=== PATIENT | male | born 1995 | race Caucasian/White ===

== ENCOUNTER 2024-04-02 22:25 | Inpatient (IN) ==
[2024-04-02] MEDS ORDERED: Haloperidol 5 mg/ml SDV IV/IM 5 MG/ML AMP ONE (22:35)
[2024-04-02] MEDS ORDERED: LORazepam 2 mg VIAL 1 ml ONE ×2 (22:35→22:37)
[2024-04-02] MEDS: Haloperidol 5 mg/ml SDV IV/IM 5 MG/ML AMP IM ONE (22:55)
[2024-04-02] MEDS: LORazepam 2 mg VIAL 1 ml IM ONE (22:55)
[2024-04-02] MEDS ORDERED: Lorazepam PYXIS KEY PRN (23:23)
[2024-04-03 01:01] LABS: ABS Basophils 0.1 10^3/uL (0.0-0.1); ABS Eosinophils 0.2 10^3/uL (0.0-0.5); ABS Lymphocytes 1.7 10^3/uL (1.0-4.8); ABS Monocytes 1.1 10^3/uL (0.0-1.1); ABS Neutrophils 6.2 10^3/uL (1.5-7.6); ABS Nucleated RBC 0.02 10^3/ul; Eosinophil % 2.5 %; Hematocrit 36.6 % (38-53); Hemoglobin 12.7 g/dL (13.2-16.3); Lymphocyte % 18.6 %; Mean Corpuscular Hemoglobin 29.6 pg (27-33); Mean Corpuscular Hgb Conc 34.6 g/dL (31-36); Mean Corpuscular Volume 85.5 fL (80-97); Mean Platelet Volume 6.2 fL (7.5-11.2); Nucleated Red Blood Cells % 0.2 %/100WBC (0.0-0.8); Platelet Count 315 10^3/uL (150-450); Red Blood Count 4.28 10^6/uL (4.06-5.63); Red Cell Distribution Width 14.6 % (12-17); White Blood Count 9.3 10^3/uL (3.6-10.2)
[2024-04-03 01:33] LABS: ALT 47 U/L (7-52); AST 116 U/L (13-39); Acetaminophen < 15 mcg/mL; Albumin 4.3 g/dL (3.5-5.7); Albumin/Globulin Ratio 2.2 (1-3); Alcohol, S < 13 mg/dL (<13); Alkaline Phosphatase 45 U/L (35-149); Anion Gap 8 mmol/L (2-16); Blood Urea Nitrogen 15 mg/dL (6-24); CO2 Carbon Dioxide 28 mmol/L (22-32); Calcium 9.2 mg/dL (8.6-10.3); Chloride 97 mmol/L (101-111); Creatinine, Serum 0.91 mg/dL (0.67-1.17); Glucose 104 mg/dL (70-100); Salicylate < 2.50 mg/dL (<30); Sodium 133 mmol/L (135-145); Total Bilirubin 0.6 mg/dL (0.2-1.0); Total Protein 6.3 g/dL (6.4-8.9); eGFR CKD-EPI 116.3 (>60)
[2024-04-03 05:49] LABS: Urine Appearance Clear; Urine Bilirubin Negative (Negative); Urine Blood Negative (Negative); Urine Color Light-Yellow; Urine Glucose Negative (Negative); Urine Ketones 1+ (Negative); Urine Nitrite Negative (Negative); Urine Protein Negative (Negative); Urine Urobilinogen Negative (Negative); Urine pH 5.5 (5.0-8.0)
[2024-04-03 06:02] LABS: Urine Benzodiazepine Screen None Detected (None Detect); Urine Cannabinoids Screen None Detected (None Detect); Urine Opiates Screen None Detected (None Detect)
[2024-04-03] MEDS: Nicotine GUM 4MG FRUIT FLAVOR PO PRN (10:22)
[2024-04-03] MEDS ORDERED: Al Hydrox/Mg Hydrox/Simet LIQ 30 ML UDC PO PRN (16:24)
[2024-04-03] MEDS: Paliperidone SUSTENNA 234 MG/1.5 ML IM ONE (17:11)
[2024-04-04] MEDS: Vitamin THERAPEUTIC TAB PO SCH (07:48)
[2024-04-04] MEDS ORDERED: Influenza Vaccine *TRI* 2024-25* 0.5 ML SYRINGE IM ONE (10:00)
[2024-04-04] MEDS ORDERED: COVID VAC 24-25 (12+) (Moderna) Syringe 0.5 mL IM ONE (10:00)
[2024-04-04] MEDS: Nicotine PATCH 21 MG/24 HR PATCH TRANSDERM SCH (14:28)
[2024-04-04] MEDS: Finasteride(ALOPECIA) 1 mg(NF) PO SCH (14:31)
[2024-04-04] MEDS: Nicotine Lozenge mini 4 MG LOZNG.MINI MT PRN (19:18)
[2024-04-05 08:56] LABS: HDL Cholesterol 46.9 mg/dL
[2024-04-07] MEDS: Paliperidone SUSTENNA 156 MG/1 ML IM ONE (09:39)
[2024-04-11] MEDS: Dextran 70/Hypromellose Tears Eye Drops 15 ml BTL (for Artificials Tears) BOTH EYES PRN (04:08)
[2024-04-13] MEDS: Nicotine Lozenge mini 4 MG LOZNG.MINI MT PRN (12:24)
[2024-04-13] MEDS: Nicotine GUM 4MG FRUIT FLAVOR PO PRN (14:07)
[2024-04-14] MEDS: Nicotine PATCH 14 MG/24 HR PATCH TRANSDERM SCH (08:22)
[2024-04-15] MEDS: Influenza Vaccine *TRI* 2024-25* 0.5 ML SYRINGE IM ONE (16:00)
[2024-04-15] MEDS: COVID VAC 24-25 (12+) (Moderna) Syringe 0.5 mL IM ONE (16:02)
[2024-04-20] MEDS: Nicotine GUM 2MG FRUIT FLAVOR PO PRN (21:06)
[2024-04-21] MEDS: Nicotine GUM 4MG FRUIT FLAVOR PO PRN (22:20)
[2024-05-02 10:21] VITALS: BP 128/83
== END 2024-05-02 16:00 | disposition home or self-care (01) | DRG 885 ==
LOC: ED 22:25 → EDHOLD 04-03 14:30 → BSU 04-03 14:34
PROVIDERS: ADMIT Psychiatry & Neurology Psychiatry; ATTEND Psychiatry & Neurology Psychiatry